=== PATIENT | female | born 1980 | race Caucasian/White ===

== ENCOUNTER → 2016-07-16 | Outpatient (CLI) | payer OTHER ==
--- NOTE | 2016-07-16 15:52 | DI ---
RIGHT BREAST ULTRASOUND, 07/16/2016 2:45 PM: Clinical History: Recall for abnormal screening mammogram. A 6 mm nodule is located at the 6:00 posit ion just deep to the nipple. Scans are performed by the technologist and myself through all four quadrants of the right breast wit h the high resolution linear array probe. Color Doppler ultrasound was also performed. In the upper half of the breast near the areola between the 11:00 and 1:00 positions, multiple small benign cysts are visualized in these range in size between 3 mm up to 9 mm in diameter. Scans through the infra-areolar region show no solid or cystic mass. The lesion seen on mammography would correspo nd to one of the lesion seen on ultrasound and the discrepancy between the exact location based on ma mmography versus that seen on ultrasound can be explained by the fact that the mammograms were perfor med with the [place] "pushback" technique these nodules are located quite close to the surface, slight "rolling" of the breast can significantly change the apparent location of the lesion. Follow Up: As long as this patient remains clinically asymptomatic, she may reenter a routine breast surveillance protocol consisting of monthly self breast exams if she so desires, and mammograms every year. BIRADS Category: 2. Benign finding. The nodular density seen on mammography represents a cyst. Ultras ound confirms there are multiple cysts deep to the nipple. Assessment: Benign finding.
== END ==
LOC: MAMMO 14:37
PROVIDERS: ATTEND Family Medicine
DX: D24.1 Benign neoplasm of right breast (principal)
CPT/HCPCS: 76641